=== PATIENT | female | born 1960 | race Caucasian/White ===

== ENCOUNTER → 2025-06-10 | Outpatient (CLI) | payer BC ==
[~2025-06-10] MED LIST: ERGO500029 PO; ESTR1TAB PO; FLON1SPR NARES; LISI20TA33 PO; MULTTAB61 PO; NIFE1TAB52 PO; NITR0.4S14 SL
== END ==
LOC: M PLAIMG 14:31
PROVIDERS: ATTEND Physician Assistant
DX: R94.31 Abnormal electrocardiogram [ECG] [EKG] (principal)

== ENCOUNTER 2025-07-06 06:53 | Emergency (ER) | payer BC ==
[~2025-07-06] VITALS: Ht 165.1 cm; Wt 104.9 kg
[~2025-07-06 06:53] MED LIST changes: -HOLTER MONITOR XX; -ROSU5TAB49 PO
[2025-07-06] MEDS: ASPIRIN 81 MG CHEWABLE TABLET PO ONE (07:38)
[2025-07-06 08:03] LABS: BASO # 0.0 10^3/uL (0.0-0.2); BASO % 0.4 % (0.0-1.0); EOS # 0.1 10^3/uL (0.0-0.5); EOS % 1.8 % (0.0-3.0); LYMPH # 2.1 10^3/uL (1.5-5.0); LYMPH % 29.3 % (24.0-44.0); MONO # 0.5 10^3/uL (0.0-0.8); MONO % 6.3 % (2.0-8.0); NEUTROPHILS # 4.4 10^3/uL (1.5-8.5); NEUTROPHILS % 61.9 % (36.0-66.0); PLATELET COUNT, AUTOMATED 297 10^3/uL (150-450)
[2025-07-06 08:32] LABS: CALCIUM LEVEL 8.9 MG/DL (8.3-10.6); CARBON DIOXIDE LEVEL 24 MMOL/L (20-31); CHLORIDE LEVEL 107 MMOL/L (98-107); CK-MB VALUE MASS < 1.0 NG/ML (<3.6); CPK CREATINE PHOSPHOKINASE 57 U/L (34-145); CREATININE FOR GFR 0.70 MG/DL (0.55-1.30); GLOMERULAR FILTRATION RATE > 90.0 (>45); MAGNESIUM LEVEL 2.0 MG/DL (1.8-2.4); POTASSIUM SERUM 3.9 MMOL/L (3.5-5.1); SODIUM LEVEL 142 MMOL/L (136-145)
[2025-07-06] MEDS ORDERED: ROSU5TAB49 PO (09:01)
[2025-07-06 09:08] LABS: CK-MB VALUE MASS < 1.0 NG/ML (<3.6)
[2025-07-06 09:11] LABS: CPK CREATINE PHOSPHOKINASE 50 U/L (34-145)
[2025-07-06 10:30] VITALS: TEMP 96.7
[2025-07-06 10:45] VITALS: BP 174/79; O2SAT 97
[2025-07-06] MEDS ORDERED: HOLTER MONITOR XX (10:54)
== END 2025-07-06 11:05 | disposition home or self-care (01) ==
LOC: M ED 06:53
DX: R00.2 Palpitations (principal); I10 Essential (primary) hypertension; I45.81 Long QT syndrome; R00.0 Tachycardia, unspecified; I44.7 Left bundle-branch block, unspecified; I25.2 Old myocardial infarction; E78.5 Hyperlipidemia, unspecified; F10.10 Alcohol abuse, uncomplicated; Z87.891 Personal history of nicotine dependence; Z79.899 Other long term (current) drug therapy

== ENCOUNTER → 2025-07-06 | Outpatient (CLI) | payer BC ==
[~2025-07-06] MED LIST changes: +HOLTER MONITOR XX; +ROSU5TAB49 PO
== END ==
LOC: M EKG 11:21
PROVIDERS: ATTEND Nurse Practitioner Family
DX: R00.2 Palpitations (principal)